=== PATIENT | female | born 1995 ===

== ENCOUNTER 2022-11-13 21:39 | Emergency (ER) | payer SELFPAY ==
[~2022-11-13] VITALS: Ht 170.2 cm; Wt 94.0 kg
[2022-11-13 23:07] VITALS: BP 148/86
== END 2022-11-14 01:19 | disposition left against medical advice (07) ==
LOC: ER 21:39
DX: J02.9 Acute pharyngitis, unspecified (principal); R05.9 Cough, unspecified; Z53.21 Procedure and treatment not carried out due to patient leaving prior to being seen by health care provider